=== PATIENT | female | born 1985 | race Caucasian/White ===

== ENCOUNTER 2016-10-08 11:37 | Emergency (ER) | payer BC ==
[~2016-10-08 11:37] MED LIST: PERCOCET1 TA1 PO
--- NOTE | 2016-10-08 12:15 | ED CLINICAL REPORT ---
Clinical Report - Physicians/Mid Levels [facility] [address] [place] [address] 10/08/2016 11:39 Patient: JENNIE MOYA Time Seen: 12:06; initial patient contact, initial documentation, patient care assumed. Arrived- By private vehicle. Historian- patient. HISTORY OF PRESENT ILLNESS Chief Complaint: Injury to the left thumb. The injury happened just prior to arrival. Occurred at home. The patient sustained a laceration from a knife (cutting cake and cut thumb). Patient is experiencing mild pain. Patient denies injury to the head or neck. No other injury. REVIEW OF SYSTEMS The patient sustained a laceration. No swelling, numbness or weakness. All systems otherwise negative, except as recorded above. PAST HISTORY See nurses notes. PROBLEMS: Appendicitis. Irritable Bowel Syndrome. --11:47 Penny Odom RJoseN. ADDITIONAL SURGERIES: Appendectomy. --11:47 Penny Odom R.N. The patient's dominant hand is the right. Tetanus immunization status is unknown. SOCIAL HISTORY Light tobacco smoker. No alcohol use or drug use. No recent travel. Is a local resident. FAMILY HISTORY No significant family medical history. ADDITIONAL NOTES The nursing notes have been reviewed with agreement regarding the chief complaint, HPI, ROS, PMH and patient medications and allergies. PHYSICAL EXAM Vital Signs: 10/08/2016 11:43 BP: 111/72. HR: 72. RR: 18. O2 saturation: 99%. Temp: 98.3 F. Pain level now: 310. Have been reviewed as normal and appear to be correct. Appearance: Alert. Oriented X3. No acute distress. Head: Head atraumatic. Eyes: Pupils equal, round and reactive to light. Eyes normal inspection. Respiratory: No respiratory distress. Skin: Skin warm and dry. Skin intact. Extremities: Hand injury present. Left thumb: mild tenderness and superficial 1.0 cm laceration of the dorsal aspect and proximal phalanx. Neurovascular intact distally. (mild active bleeding, lac at base of thumb). No erythema, swelling, abrasion, ecchymosis or puncture wound. No foreign body or deformity. No limitation in movement. No subungual hematoma or amputation present. No wrist injury. Hand and wrist exam otherwise negative. Extremities otherwise negative. Neuro, Vascular and Tendons: Vascular status intact. Sensation intact. Motor intact. Tendon function intact. Neuro: Oriented X 3. No motor deficit. No sensory deficit. Note: isolated injury to thumb. PROGRESS AND PROCEDURES Course of Care: tx options discussed, pt wanted the cheapest thing done, explained I was not privy to the billing or how much things cost, but suturing would cost the most because there would be a procedure charge, options do nothing, nice pressure bandage, steri strip or suture, pt decided to do steri strip steri strips checked after nurse put them on, wound care looked great, steri strips intact, no active bleeding. Patient counseled in person regarding the patient's stable condition and diagnosis. 12:14. Differential Diagnosis: Other possible considerations: lac, skin avulsion, fb. Above considerations are based on history and physical exam. Differential diagnosis was discussed with patient. Disposition: Discharged home in good and improved condition (12:14). Condition: good and stable. CLINICAL IMPRESSION Single deep laceration to the left thumb.Treatment of laceration not delayed. No infection, foreign body present or left fingernail injury. INSTRUCTIONS Warnings: TETANUS: You were given a tetanus shot during your visit. Make a note for future reference. GENERAL WARNINGS: Return or contact your physician immediately if your condition worsens or changes unexpectedly, if not improving as expected, or if other problems arise. Specifically return if problem worsens. Follow-up: Follow up with your doctor in about three days as needed and for wound check. Call for an appointment. Summary of care provided to patient. Understanding of the discharge instructions verbalized by patient. (Electronically signed by Haylie Layton A.R.N.P. 10/08/2016 13:19)
--- NOTE | 2016-10-08 12:15 | ED ORDER SUMMARY ---
..... Patient: JENNIE MOYA OrderSheet [facility] VisitID: [id number] [place] [address] 31y, F Registration Date/Time: 10/08/2016 ORDER SHEET Weight: 63.5 kg (stated) Allergies: Vicodin, Codeine GENERAL ORDERS: Dress Wounds (steri strips and bandage) (12:11 10/08/2016 HBivens A.R.N.P.) (12:33 DDean R.N.) MEDICATION ORDERS: Tdap IM 0.5 mL (per protocol) (11:58 10/08/2016 LSullivan R.N. verbal order read back to HBivens A.R.N.P.) (11:59 LSullivan R.N.) IV FLUIDS: ORDER SHEET NOTES: [Electronically signed by Penny Odom R.N. (12:43 10/08/2016)] [Electronically signed by Haylie LaytonR.N.PJose (13:19 10/08/2016)] [Electronically locked/signed by Penny Odom R.N. (12:43 10/08/2016)]
--- NOTE | 2016-10-08 12:15 | ED NURSING NOTES ---
Clinical Report - Nurses [facility] [place] [address] 10/08/2016 11:39 Patient: JENNIE MOYA TRIAGE Triage time 11:43. Acuity: LEVEL 4. Chief Complaint: INJURY TO LEFT HAND. INJURY TO THE LEFT THUMB. Alert. RICHARD COMA SCORE: [place] Coma Scale: 15- eyes open spontaneously (4); best verbal response- oriented x 4 (5); best motor response- obeys commands (6). --11:50 Penny Odom R.N. 11:43 10/08/16. BP: 111/72. HR: 72. RR: 18. O2 saturation: 99%. Temp: 98.3 F. Pain level now: 09/01. --11:50 Penny Odom R.N. Weight: 63.5 kg stated. Height/Length: 69 inches Per Patient. BMI: 20.7. --11:48 Penny Odom R.N. Medications None. --11:45 Penny Odom R.N. Allergies Vicodin.(anxiety, itching) --11:46 Penny Odom R.N. Codeine.(anxiety, itching) --11:46 Penny Odom R.N. History Arrived by private vehicle. Historian: patient. Accompanied by family. Primary physician (none). ( Pt was cutting a cake with right hand, and was cutting the top of the cake off, sliced her left thumb). This occurred just prior to arrival and today. She sustained a laceration from a knife. 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 PAST MEDICAL HX: Tetanus status: unknown. Uses an intrauterine device. Denies current . SOCIAL HX: Light tobacco smoker (cigarette)- less than 1/2 a pack per day. No alcohol use or drug use. FALL RISK ASSESSMENT: Fall risk assessment completed. No fall risk identified. FUNCTIONAL ASSESSMENT: Functional assessment: no impairments noted. LEARNING NEEDS ASSESSMENT: The learning needs assessment revealed no barriers. --11:50 Penny Odom R.N. PROBLEMS: Appendicitis. Irritable Bowel Syndrome. --11:47 Penny Odom R.N. ADDITIONAL SURGERIES: Appendectomy. --11:47 Penny Odom R.N. Interventions ID band on patient. To room. --11:50 Penny Odom R.N. PHYSICAL ASSESSMENT 11:51 10/08/16. GENERAL / NEURO / PSYCH: Oriented X 4. Alert. Appears in no acute distress. --11:51 Penny Odom R.N. 11:53 10/08/16. EXTREMITIES: Left thumb: laceration with controlled bleeding (pt is right handed, lac is about 1/2 inch long, can move left thumb and has sensation). --11:53 Penny Odom R.N. NURSING PROGRESS NOTES 11:54 10/08/16. Patient identifiers checked. Call light placed in reach. Bed placed in lowest position. Patient ready for evaluation- chart flagged. --11:54 Penny Odom R.N. 11:59 10/08/2016 TDAP IM 0.5 mL given. (Lot#: [id number], expiration date: 04/01/2018, Condominium Property Manager: sanofi pasteur). Confirmed 5 rights. Vaccine information statement provided to the patient. --11:59 Penny Odom R.N. 12:20. Applied clean dressing consisting of steri-strips and 4x4 gauze. Secured with tape and ad. --12:31 Betty Canela R.N. DISPOSITION / DISCHARGE Departure time: 1235. No learning barriers present. Reviewed wound care instructions. Reviewed referral to family practice for followup (as needed). Patient verbalized understanding. Written instructions provided. The patient was discharged home and accompanied by family. She left the Emergency Department ambulatory and via private vehicle. --12:42 Penny Odom R.N. 12:33 10/08/16. BP: 99/61. HR: 59. RR: 18. O2 saturation: 100%. Temp: deferred. Pain level now: 5/10. --12:42 Penny Odom R.N. Locked/Released at 10/08/2016 12:43 by Penny Odom R.N.
--- NOTE | 2016-10-08 12:15 | ED ORDER SUMMARY ---
..... Patient: JENNIE MOYA OrderSheet [facility] VisitID: [id number] [place] [address] 31y, F Registration Date/Time: 10/08/2016 ORDER SHEET Weight: 63.5 kg (stated) Allergies: Vicodin, Codeine GENERAL ORDERS: Dress Wounds (steri strips and bandage) (12:11 10/08/2016 HBivens A.R.N.P.) (12:33 DDean R.N.) MEDICATION ORDERS: Tdap IM 0.5 mL (per protocol) (11:58 10/08/2016 LSullivan R.N. verbal order read back to HBivens A.R.N.P.) (11:59 LSullivan R.N.) IV FLUIDS: ORDER SHEET NOTES: [Electronically signed by Penny Odom R.N. (12:43 10/08/2016)] [Electronically signed by Haylie LaytonR.N.PJose (13:19 10/08/2016)] [Electronically locked/signed by Penny Odom R.N. (12:43 10/08/2016)]
--- NOTE | 2016-10-08 12:15 | ED NURSING NOTES ---
Clinical Report - Nurses [facility] [place] [address] 10/08/2016 11:39 Patient: JENNIE MOYA TRIAGE Triage time 11:43. Acuity: LEVEL 4. Chief Complaint: INJURY TO LEFT HAND. INJURY TO THE LEFT THUMB. Alert. RICHARD COMA SCORE: [place] Coma Scale: 15- eyes open spontaneously (4); best verbal response- oriented x 4 (5); best motor response- obeys commands (6). --11:50 Penny Odom R.N. 11:43 10/08/16. BP: 111/72. HR: 72. RR: 18. O2 saturation: 99%. Temp: 98.3 F. Pain level now: 09/01. --11:50 Penny Odom R.N. Weight: 63.5 kg stated. Height/Length: 69 inches Per Patient. BMI: 20.7. --11:48 Penny Odom R.N. Medications None. --11:45 Penny Odom R.N. Allergies Vicodin.(anxiety, itching) --11:46 Penny Odom R.N. Codeine.(anxiety, itching) --11:46 Penny Odom R.N. History Arrived by private vehicle. Historian: patient. Accompanied by family. Primary physician (none). ( Pt was cutting a cake with right hand, and was cutting the top of the cake off, sliced her left thumb). This occurred just prior to arrival and today. She sustained a laceration from a knife. 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 PAST MEDICAL HX: Tetanus status: unknown. Uses an intrauterine device. Denies current . SOCIAL HX: Light tobacco smoker (cigarette)- less than 1/2 a pack per day. No alcohol use or drug use. FALL RISK ASSESSMENT: Fall risk assessment completed. No fall risk identified. FUNCTIONAL ASSESSMENT: Functional assessment: no impairments noted. LEARNING NEEDS ASSESSMENT: The learning needs assessment revealed no barriers. --11:50 Penny Odom R.N. PROBLEMS: Appendicitis. Irritable Bowel Syndrome. --11:47 Penny Odom R.N. ADDITIONAL SURGERIES: Appendectomy. --11:47 Penny Odom R.N. Interventions ID band on patient. To room. --11:50 Penny Odom R.N. PHYSICAL ASSESSMENT 11:51 10/08/16. GENERAL / NEURO / PSYCH: Oriented X 4. Alert. Appears in no acute distress. --11:51 Penny Odom R.N. 11:53 10/08/16. EXTREMITIES: Left thumb: laceration with controlled bleeding (pt is right handed, lac is about 1/2 inch long, can move left thumb and has sensation). --11:53 Penny Odom R.N. NURSING PROGRESS NOTES 11:54 10/08/16. Patient identifiers checked. Call light placed in reach. Bed placed in lowest position. Patient ready for evaluation- chart flagged. --11:54 Penny Odom R.N. 11:59 10/08/2016 TDAP IM 0.5 mL given. (Lot#: [id number], expiration date: 04/01/2018, Counter Stacker: sanofi pasteur). Confirmed 5 rights. Vaccine information statement provided to the patient. --11:59 Penny Odom R.N. 12:20. Applied clean dressing consisting of steri-strips and 4x4 gauze. Secured with tape and ad. --12:31 Betty Canela R.N. DISPOSITION / DISCHARGE Departure time: 1235. No learning barriers present. Reviewed wound care instructions. Reviewed referral to family practice for followup (as needed). Patient verbalized understanding. Written instructions provided. The patient was discharged home and accompanied by family. She left the Emergency Department ambulatory and via private vehicle. --12:42 Penny Odom R.N. 12:33 10/08/16. BP: 99/61. HR: 59. RR: 18. O2 saturation: 100%. Temp: deferred. Pain level now: 5/10. --12:42 Penny Odom R.N. Locked/Released at 10/08/2016 12:43 by Penny Odom R.N.
--- NOTE | 2016-10-08 13:19 | ED MAR SUMMARY ---
..... Medication Administration Record [facility] [address] [place] [address] Patient: JENNIE MOYA Visit ID: [id number] 31y, F Weight: 63.5 kg Height/Length: 69 in BMI: 20.7 ALLERGIES: Codeine, Vicodin Given 11:59 10/08/2016 Penny Odom REzio Medication Administered: TDAP [IM], Dose: 0.5 mL IM. Medication Ordered: Tdap IM 0.5 mL (per protocol).
--- NOTE | 2016-10-08 13:19 | ED MED RECONCILIATION SUMMARY ---
Patient: JENNIE MOYA Medication Reconciliation Report [facility] VisitID: [id number] [address] [place] [address] 31y, F Registration Date/Time: 10/08/2016 Weight: 63.5 kg Height/Length: 69 in. BMI: 20.7 ALLERGIES: Codeine, Vicodin The patient's Home Medications are listed below: NONE. The source(s) of the original Home Medication information: Not obtained. The following Medications were given to the patient in the Emergency Department: TDAP [IM] IM 0.5 mL, administered: 10/08/2016 11:59:00 AM The following Medications were prescribed to the patient: None.
--- NOTE | 2016-10-08 13:19 | ED DISCHARGE INSTRUCTIONS ---
Patient: JENNIE MOYA General Instructions [facility] VisitID: [id number] [place] [address] 31y, F Registration Date/Time: 10/08/2016 Single deep laceration to the left thumb.Treatment of laceration not delayed. No infection, foreign body present or left fingernail injury. INSTRUCTIONS Warnings: TETANUS: You were given a tetanus shot during your visit. Make a note for future reference. GENERAL WARNINGS: Return or contact your physician immediately if your condition worsens or changes unexpectedly, if not improving as expected, or if other problems arise. Specifically return if problem worsens. Follow-up: Follow up with your doctor in about three days as needed and for wound check. Call for an appointment. Summary of care provided to patient. Understanding of the discharge instructions verbalized by patient. ADDITIONAL INFORMATION Laceration (All Closures) Alaceration is a cut through the skin. This will usually require stitches (sutures) or ze if it is deep. Minor cuts may be treated with a surgical tape closure orskin glue. Home care The following guidelines will help you care for your laceration at home: Extremity, face, or trunk wounds Keep the wound clean and dry. If a bandage was applied and it becomes wet or dirty, replace it. Otherwise, leave it in place for the first 24 hours. If stitches or ze were used, clean the wound daily. After removing the bandage, wash the area with soap and water. Use a wet cotton swab to loosen and remove any blood or crust that forms. The doctor may prescribe an antibiotic cream or ointment to prevent infection. Do not stop taking this medication until you have finished the prescribed course or the doctor tells you to stop. The doctor may also prescribe medications for pain. Follow the doctors instructions for taking these medications. You may remove the bandage to shower as usual after the first 24 hours, but do not soak the area in water (no swimming) until the stitches or ze are removed. If surgical tape was used, keep the area clean and dry. If it becomes wet, blot it dry with a towel. If skin glue was used, do not scratch, rub, or pick at the adhesive film. Do not place tape directly over the film. Do not apply liquid, ointment, or creams to the wound while the film is in place. Do not clean the wound with peroxide and do not apply ointments. Avoid activities that cause heavy sweating until the film has fallen off. Protect the wound from prolonged exposure to sunlight or tanning lamps. You may shower as usual but do not soak the wound in water (no baths or swimming). The film will fall off by itself in 510 days. Scalp wounds During the first two days, you may carefully rinse your hair in the shower to remove blood, glass or dirt particles. After two days, you may shower and shampoo your hair normally. Do not soak your scalp in the tub or go swimming until the stitches or ze have been removed. Talk with your doctor before applying any antibiotic ointment to the wound. Mouth wounds Eat soft foods to reduce pain. If the cut is inside of your mouth, clean by rinsing after each meal and at bedtime with a mixture of equal parts water and hydrogen peroxide (do not swallow!). Or, you can use a cotton swab to directly apply hydrogen peroxide onto the cut. Mouth wounds can be painful when eating. You may use an [id number]-[id number]-jiexaix local numbing solution for pain relief. If this is not available, you may use any numbing solution for teething babies. You may apply this directly to the sores with a cotton-tip swab or with your finger. Follow-up care Follow up with your health care provider. Most skin wounds heal within ten days. Mouth and facial wounds heal within five days. However, even with proper treatment, a wound infection may sometimes occur. Therefore, you should check the wound daily for signs of infection listed below. Stitches should be removed from the face within five days; stitches and ze should be removed from other parts of the body within 714 days. If dissolving stitches were used in the mouth, these will fall out or dissolve without the need for removal. If tape closures were used, remove them yourself if they have not fallen off after 7 days. Ifskin glue was used, the film will fall off by itself in 510 days. When to seek medical care Get prompt medical attention if any of these occur: Bleeding not controlled by direct pressure Signs of infection, including increasing pain in the wound, increasing wound redness or swelling, or pus coming from the wound Fever of 100.4F (38C) or higher, or as directed by your health care provider Stitches or ze come apart or fall out or surgical tape falls off before 7 days Wound edges re-open Laceration, Extremity (Sutures, [place], Or Tape) A laceration is a cut through the skin. This will usually require stitches (sutures) or ze if it is deep. Minor cuts may be treated with surgical tape closures. Home care The following guidelines will help you care for your laceration at home: Keep the wound clean and dry. If a bandage was applied and it becomes wet or dirty, replace it. Otherwise, leave it in place for the first 24 hours, then change it once a day or as directed. If stitches or ze were used, clean the wound daily: After removing the bandage, wash the area with soap and water. Use a wet cotton swab to loosen and remove any blood or crust that forms. After cleaning, keep the wound clean and dry. Talk with your doctor before applying any antibiotic ointment to the wound. Reapply the bandage. You may remove the bandage to shower as usual after the first 24 hours, but do not soak the area in water (no swimming) until the stitches or ze are removed. If surgical tape closures were used, keep the area clean and dry. If it becomes wet, blot it dry with a towel. The doctor may prescribe an antibiotic cream or ointment to prevent infection. Do not stop taking this medication until you have finished the prescribed course or the doctor tells you to stop. The doctor may also prescribe medications for pain. Follow the doctors instructions for taking these medications. If you have chronic liver or kidney disease or ever had a stomach ulcer or GI bleeding, talk with your doctor before using these medicines. Follow-up care Follow up with your health care provider. Most skin wounds heal within ten days. However, an infection may sometimes occur despite proper treatment. Therefore, check the wound daily for the signs of infection listed below. Stitches and ze should be removed within 714 days. If surgical tape closures were used, you may remove them after 10 days, if they have not fallen off by then. Notify your doctor if you notice persistent numbness or weakness in the injured extremity. (Note:A radiologist will review any X-rays that were taken. We will notify you of any new findings that may affect your care.) When to seek medical care Get prompt medical attention if any of these occur: Increasing pain in the wound Redness, swelling, or pus coming from the wound Fever of 100.4F (38C) or higher, or as directed by your health care provider If stitches or ze come apart or fall out before your next appointment If the surgical tape closures fall off within seven days, or the wound edges re-open Bleeding not controlled by direct pressure Diphtheria Toxoid Adsorbed, Pertussis Vaccine, Acellular (Adsorbed), Tetanus Toxoid, Adsorbed Suspension for injection What is this medicine? DIPHTHERIA and TETANUS TOXOIDS; PERTUSSIS VACCINE (dif THEER ee uh and TET n us TOK soids; per TUS iss jenniferk SEEN) is used to prevent diphtheria, tetanus, and pertussis infections. How should I use this medicine? This vaccine is for injection into a muscle. It is given by a health career orientation teacher. A copy of Vaccine Information Statements will be given before each vaccination. Read this sheet carefully each time. The sheet may change frequently. Talk to your is architect regarding the use of this vaccine in children. While the DTP vaccine may be given to children ages 6 weeks to 7 years and the Tdap vaccine may be given to children at least 10 years old, precautions do apply. What side effects may I notice from receiving this medicine? Side effects that you should report to your doctor or health career orientation teacher as soon as possible: allergic reactions like skin rash, itching or hives, swelling of the face, lips, or tongue breathing problems fever of 103 degrees F or more flu-like symptoms inconsolable crying infection pain, tingling, numbness in the hands or feet seizures swelling of arm or leg that was injected unusually weak or tired Side effects that usually do not require immediate medical attention (report these side effects to your doctor or health career orientation teacher if they continue or are bothersome): fussy, irritable loss of appetite fever of 102 degrees F or less pain, tenderness, redness, swelling, or a 'knot' at site where injected vomiting What may interact with this medicine? immune globulin medicines that suppress your immune function like adalimumab, anakinra, infliximab medicines to treat cancer medicines that treat or prevent blood clots like warfarin, enoxaparin, and dalteparin steroid medicines like prednisone or cortisone What if I miss a dose? It is important not to miss your dose. Call your doctor or health career orientation teacher if you are unable to keep an appointment. Where should I keep my medicine? This drug is given in a hospital or clinic and will not be stored at home. What should I tell my health care provider before I take this medicine? They need to know if you have any of these conditions: blood disorders like hemophilia fever or infection immune system problems neurologic disease seizures an unusual or allergic reaction to vaccines, thimerosal, latex, other medicines, foods, dyes, or preservatives or trying to get breast-feeding What should I watch for while using this medicine? See your health care provider for all shots of this vaccine as directed. To have protection from infection, you must have 3 shots of this vaccine plus boosters as needed. Tell your doctor right away if you have any serious or unusual side effects after getting this vaccine. You have been given the following additional information: Laceration, All Laceration, Extrem (Suture, Staple, Or Tape) Diphtheria Toxoid Adsorbed, Pertussis Vaccine, Acellular (Adsorbed), Tetanus Toxoid, Adsorbed Suspension for injection (Electronically signed by Haylie Layton A.R.N.P. 10/08/2016 13:19)
--- NOTE | 2016-10-08 13:19 | ED MAR SUMMARY ---
..... Medication Administration Record [facility] [address] [place] [address] Patient: JENNIE MOYA Visit ID: [id number] 31y, F Weight: 63.5 kg Height/Length: 69 in BMI: 20.7 ALLERGIES: Codeine, Vicodin Given 11:59 10/08/2016 Penny Odom REzio Medication Administered: TDAP [IM], Dose: 0.5 mL IM. Medication Ordered: Tdap IM 0.5 mL (per protocol).
--- NOTE | 2016-10-08 13:19 | ED MED RECONCILIATION SUMMARY ---
Patient: JENNIE MOYA Medication Reconciliation Report [facility] VisitID: [id number] [address] [place] [address] 31y, F Registration Date/Time: 10/08/2016 Weight: 63.5 kg Height/Length: 69 in. BMI: 20.7 ALLERGIES: Codeine, Vicodin The patient's Home Medications are listed below: NONE. The source(s) of the original Home Medication information: Not obtained. The following Medications were given to the patient in the Emergency Department: TDAP [IM] IM 0.5 mL, administered: 10/08/2016 11:59:00 AM The following Medications were prescribed to the patient: None.
== END 2016-10-08 12:35 | disposition home or self-care (01) ==
LOC: ED SRH 11:37
DX: S61.012A Laceration without foreign body of left thumb without damage to nail, initial encounter (principal); W26.0XXA Contact with knife, initial encounter; Y92.009 Unspecified place in unspecified non-institutional (private) residence as the place of occurrence of the external cause; F17.210 Nicotine dependence, cigarettes, uncomplicated; Z88.5 Allergy status to narcotic agent